=== PATIENT | female | born 1940 | race Caucasian/White ===

== ENCOUNTER → 2022-04-29 | Outpatient (CLI) | payer OTHER | LOC: CT 12:34 | DX: R63.4 Abnormal weight loss (principal); Z78.0 Asymptomatic menopausal state; Z13.820 Encounter for screening for osteoporosis; D64.9 Anemia, unspecified | CPT/HCPCS: Q9967 ==

== ENCOUNTER → 2022-05-13 | Outpatient (CLI) | payer OTHER | LOC: CT 14:32 | DX: R93.3 Abnormal findings on diagnostic imaging of other parts of digestive tract (principal) | CPT/HCPCS: 74170; Q9967 ==